=== PATIENT | female | born 1965 | race Caucasian/White ===

== ENCOUNTER 2023-03-10 18:28 | Emergency (ER) | payer SELFPAY ==
[~2023-03-10] VITALS: Ht 165.1 cm; Wt 74.8 kg
[2023-03-10 19:24] VITALS: BP 157/83
== END 2023-03-10 19:24 | disposition home or self-care (01) ==
LOC: ED 18:28
DX: S93.602A Unspecified sprain of left foot, initial encounter (principal); X50.1XXA Overexertion from prolonged static or awkward postures, initial encounter; J44.9 Chronic obstructive pulmonary disease, unspecified; Z88.5 Allergy status to narcotic agent
CPT/HCPCS: 73630; 99283-25; A9270